=== PATIENT | male | born 1980 | race Caucasian/White ===

== ENCOUNTER 2016-09-19 21:41 | Emergency (ER) | payer SELFPAY ==
[~2016-09-19] VITALS: Ht 177.8 cm; Wt 95.3 kg
[~2016-09-19 21:41] MED LIST: 'PARAFON FORTE500 M1 PO; CLARITIN-D 24 H1 TAB PO; CLARITIN10 MG PO; DAYPRO600 M1 PO; HYDROCODONE BIT1 T11 PO; IBUPROFEN400 MG PO; KEFLEX500 M1 PO; KEFLEX500 MG PO; LOMOTIL 0.025 M1 TA1 PO; MOTRIN600 MG PO; Motrin,Rufen800 MG PO; NAPROSYN500 MG PO; NEXIUM40 MG PO; NORCO 10-325 T1 EACH PO; NORCO 325 MG-51 TAB PO; PARAFON FORTE500 MG PO; PEN-VEE K500 MG PO; PHENERGAN W/ DE30 ML PO; PHENERGAN25 M1 PO; PREDNICOT10 MG PO; PREVACID30 M2 PO; ULTRAM50 MG PO; ZITHROMAX Z PA250 MG PO; ZITHROMAX500 MG PO; ZOFRAN4 MG PO; Zofran4 MG PO
[2016-09-19 21:47] VITALS: BP 145/88
[2016-09-19] MEDS ORDERED: CORTISPORIN SUS10 ML OT (22:29)
== END 2016-09-19 23:47 | disposition home or self-care (01) ==
LOC: ED 21:41
DX: T16.2XXA Foreign body in left ear, initial encounter (principal); K21.9 Gastro-esophageal reflux disease without esophagitis; X58.XXXA Exposure to other specified factors, initial encounter; Y93.89 Activity, other specified; Y92.9 Unspecified place or not applicable; Y99.9 Unspecified external cause status

== ENCOUNTER 2016-09-24 10:45 | Emergency (ER) | payer SELFPAY ==
[~2016-09-24] VITALS: Ht 177.8 cm; Wt 95.3 kg
[~2016-09-24 10:45] MED LIST changes: +CORTISPORIN SUS10 ML OT
[2016-09-24 11:05] VITALS: BP 152/98
== END 2016-09-24 11:38 | disposition home or self-care (01) ==
LOC: ED 10:45
DX: H60.502 Unspecified acute noninfective otitis externa, left ear (principal); K21.9 Gastro-esophageal reflux disease without esophagitis

== ENCOUNTER 2016-09-25 13:03 | Inpatient (IN) | payer SELFPAY ==
[~2016-09-25] VITALS: Wt 95.3 kg
[2016-09-25 13:18] VITALS: BP 143/82
[2016-09-25 13:34] LABS: BASO % 0.2 % (0.0-1.0); EOS % 0.2 % (1.0-4.0); HEMATOCRIT 44.5 % (42.0-52.0); LYMPH # 2.1 10*3/uL (1.3-4.4); LYMPH % 22.8 % (27.0-41.0); MEAN CELL VOLUME 86.6 fl (80.0-94.0); MEAN CORPUSCULAR HGB 29.2 pg (27.0-31.0); MEAN CORPUSCULAR HGB CONC 33.7 g/dl (33.0-37.0); MEAN PLATELET VOLUME 9.8 fl (9.6-12.3); MONO # 0.6 10*3/uL (0.1-1.0); MONO % 6.6 % (3.0-9.0); NEUT # 6.3 10*3/uL (2.3-7.9); NEUT % 70.1 % (47.0-73.0); PLATELET COUNT AUTOMATED 255 10*3/uL (130-400); RED BLOOD COUNT 5.14 10*6/uL (4.50-5.90); RED CELL DISTRI WIDTH 12.2 % (0-14.5)
[2016-09-25 13:40] VITALS: BP 146/84
[2016-09-25 13:43] LABS: PROTHROMBIN TIME 10.3 SECONDS (9.0-12.4)
[2016-09-25 13:51] LABS: ALBUMIN 3.9 gm/dl (3.1-4.5); ALKALINE PHOSPHATASE 66 U/L (45-117); BILIRUBIN, TOTAL 0.3 mg/dl (0.2-1.0); BUN 19 mg/dl (7-24); CARBON DIOXIDE 25 mmol/L (21-32); CHLORIDE 107 mmol/L (98-107); EST GLOM FILT AFRICAN AMERICAN > 60 ml/min; GLUCOSE 82 mg/dL (65-99); SGOT/AST 21 IU/L (3-35); SGPT/ALT 32 U/L (12-78); SODIUM 138 mmol/L (136-145); TOTAL PROTEIN 7.6 gm/dL (6.4-8.2)
[2016-09-25 13:52] LABS: TROPONIN I < 0.015 ng/ml (<0.045)
[2016-09-25 14:53] VITALS: BP 124/73
[2016-09-25 16:00] VITALS: BP 128/85
[2016-09-25 20:00] VITALS: BP 128/80
[2016-09-26] VITALS: BP 142/82
[2016-09-26 05:13] LABS: BASO % 0.3 % (0.0-1.0); EOS # 0.2 10*3/uL (0.0-0.4); EOS % 1.9 % (1.0-4.0); HEMATOCRIT 43.6 % (42.0-52.0); HEMOGLOBIN 14.7 g/dl (14.0-18.0); LYMPH # 2.8 10*3/uL (1.3-4.4); LYMPH % 30.9 % (27.0-41.0); MEAN CORPUSCULAR HGB 29.3 pg (27.0-31.0); MEAN CORPUSCULAR HGB CONC 33.7 g/dl (33.0-37.0); MEAN PLATELET VOLUME 10.2 fl (9.6-12.3); MONO # 0.8 10*3/uL (0.1-1.0); MONO % 8.4 % (3.0-9.0); NEUT # 5.2 10*3/uL (2.3-7.9); NEUT % 58.3 % (47.0-73.0); PLATELET COUNT AUTOMATED 231 10*3/uL (130-400); RED BLOOD COUNT 5.01 10*6/uL (4.50-5.90); RED CELL DISTRI WIDTH 12.4 % (0-14.5); WHITE BLOOD COUNT 8.9 10*3/uL (4.8-10.8)
[2016-09-26 05:34] LABS: ALBUMIN 3.7 gm/dl (3.1-4.5); BILIRUBIN, TOTAL 0.5 mg/dl (0.2-1.0); BUN 18 mg/dl (7-24); CARBON DIOXIDE 26 mmol/L (21-32); CHLORIDE 105 mmol/L (98-107); CHOLESTEROL 191 mg/dL (<200); EST GLOM FILT AFRICAN AMERICAN > 60 ml/min; GLUCOSE 99 mg/dL (65-99); POTASSIUM 4.1 mmol/L (3.5-5.1); SGOT/AST 25 IU/L (3-35); SGPT/ALT 31 U/L (12-78); SODIUM 140 mmol/L (136-145); TOTAL PROTEIN 7.1 gm/dL (6.4-8.2); TRIGLYCERIDES 192 mg/dl (<150); VLDL CHOLESTEROL 38 mg/dL (6-40)
[2016-09-26 05:41] LABS: ALKALINE PHOSPHATASE 52 U/L (45-117); FREE T4 1.11 ng/dl (0.76-1.46); HDL CHOLESTEROL 48 mg/dl (40-60); LDL CHOLESTEROL 105 mg/dL (9-159)
[2016-09-26 07:04] LABS: VITAMIN D, 25-HYDROXY 22.2 ng/mL (30-100)
[2016-09-26 07:05] LABS: FOLIC ACID 15.27 ng/mL (>5.38)
[2016-09-26 07:07] LABS: HEMOGLOBIN A1c 5.5 % (4.8-5.6)
[2016-09-26 08:00] VITALS: BP 130/85
[2016-09-26] MEDS ORDERED: VITAMIN D31000 IU PO (11:00)
== END 2016-09-26 11:30 | disposition home or self-care (01) | DRG 206 ==
LOC: ED 13:03 → 4E 14:22 → EDHOLD 14:22 → 4E 14:55
PROVIDERS: Nurse Practitioner Family; Registered Nurse
DX: M94.0 Chondrocostal junction syndrome [Tietze] (principal); E78.2 Mixed hyperlipidemia; K21.9 Gastro-esophageal reflux disease without esophagitis

== ENCOUNTER 2017-01-13 16:02 | Emergency (ER) | payer SELFPAY ==
[~2017-01-13] VITALS: Ht 177.8 cm; Wt 95.3 kg
[~2017-01-13 16:02] MED LIST changes: +VITAMIN D31000 IU PO
[2017-01-13 16:33] VITALS: BP 116/86
[2017-01-14] MEDS ORDERED: ALBUTEROL2.5 MG/0.5 INH (12:04)
[2017-01-14] MEDS ORDERED: PREDNISONE20 M1 PO (12:04)
[2017-01-14] MEDS ORDERED: AMOXICILLIN500 M2 PO (12:04)
== END 2017-01-13 19:02 | disposition left against medical advice (07) ==
LOC: ED 16:02
DX: R05 Cough (principal); R09.89 Other specified symptoms and signs involving the circulatory and respiratory systems; R50.9 Fever, unspecified

== ENCOUNTER 2017-01-14 10:13 | Emergency (ER) | payer SELFPAY ==
[~2017-01-14] VITALS: Ht 177.8 cm; Wt 95.3 kg
[2017-01-14 10:45] VITALS: BP 120/60
[2017-01-14] MEDS ORDERED: AMOXICILLIN500 M2 PO (12:04)
[2017-01-14] MEDS ORDERED: ALBUTEROL2.5 MG/0.5 INH (12:04)
[2017-01-14] MEDS ORDERED: PREDNISONE20 M1 PO (12:04)
== END 2017-01-14 12:20 | disposition home or self-care (01) ==
LOC: ED 10:13
DX: J20.9 Acute bronchitis, unspecified (principal)

== ENCOUNTER 2017-05-22 04:40 | Emergency (ER) | payer SELFPAY ==
[~2017-05-22] VITALS: Ht 177.8 cm; Wt 95.3 kg
[2017-05-22 04:40] VITALS: BP 119/83
[~2017-05-22 04:40] MED LIST changes: +ALBUTEROL2.5 MG/0.5 INH; +AMOXICILLIN500 M2 PO; +PREDNISONE20 M1 PO
== END 2017-05-22 06:24 | disposition home or self-care (01) ==
LOC: ED 04:40
DX: J40 Bronchitis, not specified as acute or chronic (principal); K21.9 Gastro-esophageal reflux disease without esophagitis; E78.2 Mixed hyperlipidemia; Z79.899 Other long term (current) drug therapy

== ENCOUNTER 2018-02-18 05:40 | Emergency (ER) | payer SELFPAY ==
[~2018-02-18] VITALS: Ht 177.8 cm; Wt 97.5 kg
[2018-02-18 05:41] VITALS: BP 140/90
[2018-02-18] MEDS ORDERED: PREDNISONE20 M1 PO (06:44)
[2018-02-18] MEDS ORDERED: CEFDINIR300 MG PO (06:44)
== END 2018-02-18 06:49 | disposition home or self-care (01) ==
LOC: ED 05:40
DX: J20.9 Acute bronchitis, unspecified (principal); K21.9 Gastro-esophageal reflux disease without esophagitis; E78.2 Mixed hyperlipidemia

== ENCOUNTER 2018-11-18 06:24 | Emergency (ER) | payer SELFPAY ==
[~2018-11-18] VITALS: Ht 177.8 cm; Wt 95.3 kg
[~2018-11-18 06:24] MED LIST changes: +CEFDINIR300 MG PO
[2018-11-18 06:25] VITALS: BP 158/92
== END 2018-11-18 07:31 | disposition home or self-care (01) ==
LOC: ED 06:24
DX: J06.9 Acute upper respiratory infection, unspecified (principal); E66.9 Obesity, unspecified; F17.200 Nicotine dependence, unspecified, uncomplicated; Z79.2 Long term (current) use of antibiotics; Z79.899 Other long term (current) drug therapy

== ENCOUNTER 2018-12-07 07:03 | Emergency (ER) | payer SELFPAY ==
[~2018-12-07] VITALS: Ht 177.8 cm; Wt 95.3 kg
[2018-12-07 07:05] VITALS: BP 114/90
[2018-12-07 07:27] LABS: HEMATOCRIT 42.2 % (42.0-52.0); HEMOGLOBIN 13.7 g/dl (14.0-18.0); MEAN CELL VOLUME 88.5 fl (80.0-94.0); MEAN CORPUSCULAR HGB 28.7 pg (27.0-31.0); MEAN CORPUSCULAR HGB CONC 32.5 g/dl (33.0-37.0); MEAN PLATELET VOLUME 9.5 fl (9.6-12.3); PLATELET COUNT AUTOMATED 244 10*3/uL (130-400); RED BLOOD COUNT 4.77 10*6/uL (4.50-5.90); RED CELL DISTRI WIDTH 12.4 % (0-14.5); WHITE BLOOD COUNT 7.3 10*3/uL (4.8-10.8)
[2018-12-07 07:35] LABS: ALBUMIN 3.5 gm/dl (3.1-4.5); ALKALINE PHOSPHATASE 88 U/L (45-117); BUN 17 mg/dl (7-24); CHLORIDE 111 mmol/L (98-107); CREATININE 1.05 mg/dL (0.70-1.30); LIPASE 176 U/L (73-393); POTASSIUM 4.1 mmol/L (3.5-5.1); SGOT/AST 14 IU/L (3-35); SGPT/ALT 33 U/L (12-78); SODIUM 141 mmol/L (136-145); TOTAL PROTEIN 6.9 gm/dL (6.4-8.2)
[2018-12-07 07:40] LABS: BILIRUBIN NEGATIVE (NEGATIVE); BLOOD NEGATIVE (NEGATIVE); CLARITY SL CLOUDY (CLEAR); COLOR YELLOW (YELLOW); GLUCOSE NEGATIVE (NEGATIVE); KETONE NEGATIVE (NEGATIVE); LEUKO ESTERASE NEGATIVE (NEGATIVE); NITRITE NEGATIVE (NEGATIVE); UROBILINOGEN 0.2 E.U./dl (0.2-1.0)
[2018-12-07 07:44] LABS: TOTAL CELLS COUNTED 100 #CELLS
[2018-12-07 07:45] LABS: PLATELET SUFFICIENCY NORMAL (NORMAL)
[2018-12-07 07:50] LABS: EPITHELIAL CELLS 0-2
[2018-12-07] MEDS ORDERED: PRILOSEC20 M1 PO (08:03)
[2018-12-07] MEDS ORDERED: ZOFRAN4 MG PO (08:03)
== END 2018-12-07 08:07 | disposition home or self-care (01) ==
LOC: ED 07:03
PROVIDERS: Emergency Medicine
DX: R11.2 Nausea with vomiting, unspecified (principal); R10.9 Unspecified abdominal pain; K21.9 Gastro-esophageal reflux disease without esophagitis; E66.9 Obesity, unspecified; E78.2 Mixed hyperlipidemia; Z79.2 Long term (current) use of antibiotics; Z79.899 Other long term (current) drug therapy

== ENCOUNTER 2019-02-22 11:39 | Emergency (ER) | payer SELFPAY ==
[~2019-02-22] VITALS: Wt 90.7 kg
[~2019-02-22 11:39] MED LIST changes: +PRILOSEC20 M1 PO
[2019-02-22 11:52] VITALS: BP 131/89
[2019-02-22] MEDS ORDERED: CYCLOBENZAPRINE5 M3 PO (14:58)
[2019-02-22] MEDS ORDERED: Motrin,Rufen800 MG PO (14:58)
== END 2019-02-22 15:06 | disposition home or self-care (01) ==
LOC: ED 11:39
DX: S39.012A Strain of muscle, fascia and tendon of lower back, initial encounter (principal); W01.0XXA Fall on same level from slipping, tripping and stumbling without subsequent striking against object, initial encounter; Y93.89 Activity, other specified; Y92.89 Other specified places as the place of occurrence of the external cause; Y99.8 Other external cause status

== ENCOUNTER 2019-08-18 08:46 | Emergency (ER) | payer SELFPAY ==
[~2019-08-18] VITALS: Ht 175.2 cm; Wt 95.3 kg
[~2019-08-18 08:46] MED LIST changes: +CYCLOBENZAPRINE5 M3 PO
[2019-08-18 08:52] VITALS: BP 143/96
[2019-08-18] MEDS ORDERED: NORCO 10-325 T1 EACH PO (11:40)
[2019-08-18] MEDS ORDERED: MEDROL DOSEPAK4 MG PO (11:40)
== END 2019-08-18 11:45 | disposition home or self-care (01) ==
LOC: ED 08:46
DX: S39.012A Strain of muscle, fascia and tendon of lower back, initial encounter (principal); K21.9 Gastro-esophageal reflux disease without esophagitis; X58.XXXA Exposure to other specified factors, initial encounter; Y93.89 Activity, other specified; Y92.89 Other specified places as the place of occurrence of the external cause; Y99.8 Other external cause status

== ENCOUNTER 2020-05-16 13:15 | Emergency (ER) | payer SELFPAY ==
[~2020-05-16] VITALS: Ht 177.8 cm; Wt 99.8 kg
[~2020-05-16 13:15] MED LIST changes: +MEDROL DOSEPAK4 MG PO
[2020-05-16 13:24] VITALS: BP 139/87
[2020-05-16] MEDS ORDERED: ROBAXIN-750750 MG PO (14:32)
[2020-05-16] MEDS ORDERED: PREDNISONE20 M1 PO (14:32)
== END 2020-05-16 15:26 | disposition home or self-care (01) ==
LOC: ED 13:15
DX: M54.42 Lumbago with sciatica, left side (principal); K21.9 Gastro-esophageal reflux disease without esophagitis; Z79.899 Other long term (current) drug therapy

== ENCOUNTER 2020-06-21 11:47 | Emergency (ER) | payer SELFPAY ==
[~2020-06-21] VITALS: Wt 95.3 kg
[~2020-06-21 11:47] MED LIST changes: +ROBAXIN-750750 MG PO
[2020-06-21 11:52] VITALS: BP 121/92
[2020-06-21] MEDS ORDERED: PEPCID20 MG PO (13:34)
[2020-06-21] MEDS ORDERED: PROTONIX40 MG PO (13:34)
== END 2020-06-21 13:40 | disposition home or self-care (01) ==
LOC: ED 11:47
DX: K21.9 Gastro-esophageal reflux disease without esophagitis (principal); Z79.2 Long term (current) use of antibiotics; Z79.899 Other long term (current) drug therapy

== ENCOUNTER 2021-01-23 11:03 | Emergency (ER) | payer SELFPAY ==
[~2021-01-23] VITALS: Wt 97.5 kg
[~2021-01-23 11:03] MED LIST changes: +PEPCID20 MG PO; +PROTONIX40 MG PO
[2021-01-23 11:22] VITALS: BP 131/93
[2021-01-23] MEDS ORDERED: IBUPROFEN600 MG PO (14:02)
== END 2021-01-23 13:59 | disposition left against medical advice (07) ==
LOC: ED 11:03
DX: M77.8 Other enthesopathies, not elsewhere classified (principal)

== ENCOUNTER 2021-02-12 15:04 | Emergency (ER) | payer SELFPAY ==
[~2021-02-12] VITALS: Wt 95.3 kg
[~2021-02-12 15:04] MED LIST changes: +IBUPROFEN600 MG PO
[2021-02-12 15:08] VITALS: BP 121/88
== END 2021-02-12 17:46 | disposition home or self-care (01) ==
LOC: ED 15:04
DX: S20.219A Contusion of unspecified front wall of thorax, initial encounter (principal); S89.91XA Unspecified injury of right lower leg, initial encounter; W22.01XA Walked into wall, initial encounter; Y93.89 Activity, other specified; Y92.89 Other specified places as the place of occurrence of the external cause; Y99.8 Other external cause status

== ENCOUNTER 2021-02-28 13:58 | Emergency (ER) | payer SELFPAY ==
[~2021-02-28] VITALS: Ht 177.8 cm; Wt 95.3 kg
[2021-02-28 14:19] VITALS: BP 150/102
== END 2021-02-28 16:39 | disposition left against medical advice (07) ==
LOC: ED 13:58
DX: Z53.21 Procedure and treatment not carried out due to patient leaving prior to being seen by health care provider (principal)

== ENCOUNTER 2021-04-18 12:27 | Emergency (ER) | payer SELFPAY ==
[~2021-04-18] VITALS: Wt 90.7 kg
[2021-04-18 12:43] VITALS: BP 106/66
[2021-04-18] MEDS ORDERED: PEPCID20 MG PO (14:09)
== END 2021-04-18 14:25 | disposition home or self-care (01) ==
LOC: ED 12:27
DX: R10.13 Epigastric pain (principal); K21.9 Gastro-esophageal reflux disease without esophagitis

== ENCOUNTER 2021-05-24 11:06 | Emergency (ER) | payer SELFPAY ==
[~2021-05-24] VITALS: Ht 177.8 cm; Wt 99.8 kg
[2021-05-24 11:12] VITALS: BP 125/85
[2021-05-24 12:13] LABS: BASO # 0.1 10*3/uL (0.0-0.1); BASO % 0.7 % (0.0-1.0); EOS # 0.4 10*3/uL (0.0-0.4); EOS % 5.3 % (1.0-4.0); HEMATOCRIT 43.2 % (42.0-52.0); LYMPH # 2.3 10*3/uL (1.3-4.4); LYMPH % 31.1 % (27.0-41.0); MEAN CELL VOLUME 86.7 fl (80.0-94.0); MEAN CORPUSCULAR HGB 28.9 pg (27.0-31.0); MEAN CORPUSCULAR HGB CONC 33.3 g/dl (33.0-37.0); MEAN PLATELET VOLUME 8.8 fl (9.6-12.3); MONO # 0.6 10*3/uL (0.1-1.0); MONO % 7.9 % (3.0-9.0); NEUT % 54.6 % (47.0-73.0); PLATELET COUNT AUTOMATED 252 10*3/uL (130-400); RED BLOOD COUNT 4.98 10*6/uL (4.50-5.90); RED CELL DISTRI WIDTH 12.6 % (0-14.5); WHITE BLOOD COUNT 7.3 10*3/uL (4.8-10.8)
[2021-05-24 12:22] LABS: BILIRUBIN Negative (Negative); BLOOD Negative (Negative); CLARITY Clear (Clear); COLOR Yellow (Yellow); GLUCOSE Negative (Negative); KETONE Negative (Negative); LEUKO ESTERASE Negative (Negative); NITRITE Negative (Negative); PH 6.5 (4.5-8.0); SPECIFIC GRAVITY 1.025 (1.001-1.030)
[2021-05-24 12:32] LABS: ALKALINE PHOSPHATASE 72 U/L (45-117); BUN 12 mg/dl (7-24); CHLORIDE 110 mmol/L (98-107); CREATININE 0.97 mg/dL (0.70-1.30); LIPASE 71 U/L (73-393); POTASSIUM 4.1 mmol/L (3.5-5.1); SGOT/AST 14 IU/L (3-35); SGPT/ALT 23 U/L (12-78); SODIUM 142 mmol/L (136-145)
[2021-05-24 12:49] LABS: EPITHELIAL CELLS 0-2; MUCOUS 1+
== END 2021-05-24 17:45 | disposition home or self-care (01) ==
LOC: ED 11:06
PROVIDERS: Nurse Practitioner
DX: S39.011A Strain of muscle, fascia and tendon of abdomen, initial encounter (principal); K29.00 Acute gastritis without bleeding; Z90.89 Acquired absence of other organs; X58.XXXA Exposure to other specified factors, initial encounter; Y93.89 Activity, other specified; Y92.89 Other specified places as the place of occurrence of the external cause; Y99.8 Other external cause status

== ENCOUNTER 2022-10-17 10:54 | Emergency (ER) | payer SELFPAY ==
[~2022-10-17] VITALS: Ht 177.8 cm; Wt 99.8 kg
[2022-10-17 11:26] VITALS: BP 119/82
[2022-10-17] MEDS ORDERED: OFLOXACIN 10 ML10 M2 OU (11:36)
== END 2022-10-17 11:42 | disposition home or self-care (01) ==
LOC: ED 10:54
DX: H10.9 Unspecified conjunctivitis (principal); K21.9 Gastro-esophageal reflux disease without esophagitis; Z98.890 Other specified postprocedural states

== ENCOUNTER 2024-02-13 06:50 | Emergency (ER) | payer SELFPAY ==
[~2024-02-13] VITALS: Ht 177.8 cm; Wt 99.8 kg
[~2024-02-13 06:50] MED LIST changes: +OFLOXACIN 10 ML10 M2 OU
[2024-02-13 06:58] VITALS: BP 129/91
[2024-02-13] MEDS ORDERED: MORPHINE Sulfate 2 MG/ML SYR IV ONE (07:05)
[2024-02-13 07:10] LABS: BASO % 0.4 % (0.0-1.0); EOS # 0.2 10*3/uL (0.0-0.4); HEMATOCRIT 44.3 % (42.0-52.0); MEAN CELL VOLUME 87.7 fl (80.0-94.0); MEAN CORPUSCULAR HGB 28.3 pg (27.0-31.0); MEAN CORPUSCULAR HGB CONC 32.3 g/dl (33.0-37.0); MEAN PLATELET VOLUME 9.1 fl (9.6-12.3); MONO # 0.6 10*3/uL (0.1-1.0); MONO % 7.8 % (3.0-9.0); NEUT # 4.7 10*3/uL (2.3-7.9); NEUT % 62.9 % (47.0-73.0); PLATELET COUNT AUTOMATED 234 10*3/uL (130-400); RED BLOOD COUNT 5.05 10*6/uL (4.50-5.90); RED CELL DISTRI WIDTH 12.8 % (0-14.5); WHITE BLOOD COUNT 7.4 10*3/uL (4.8-10.8)
[2024-02-13 07:30] LABS: ALKALINE PHOSPHATASE 81 U/L (46-116); BUN 13 mg/dl (9-23); CHLORIDE 108 mmol/L (98-107); POTASSIUM 3.9 mmol/L (3.4-5.1); SGPT/ALT 10 U/L (5-49); TOTAL PROTEIN 7.2 gm/dL (6.0-8.0)
[2024-02-13] MEDS ORDERED: Dicyclomine Hydrochloride 20 MG/10 ML OSYR PO STA (08:12)
[2024-02-13] MEDS ORDERED: Lidocaine Hydrochloride 15 ML UDC PO STA (08:12)
[2024-02-13] MEDS ORDERED: MG-AL HYDROXIDE/SIMETICONE 30 ML UDC PO STA (08:12)
== END 2024-02-13 10:10 | disposition home or self-care (01) ==
LOC: ED 06:50
PROVIDERS: Internal Medicine
DX: K21.9 Gastro-esophageal reflux disease without esophagitis (principal); R07.89 Other chest pain; R06.02 Shortness of breath; Z98.890 Other specified postprocedural states

== ENCOUNTER 2024-05-11 19:53 | Emergency (ER) | payer SELFPAY ==
[~2024-05-11] VITALS: Ht 177.8 cm; Wt 99.8 kg
[2024-05-11 20:07] VITALS: BP 125/89
[2024-05-11 20:47] LABS: BASO % 0.3 % (0.0-1.0); EOS % 0.1 % (1.0-4.0); HEMATOCRIT 47.4 % (42.0-52.0); MEAN CELL VOLUME 87.5 fl (80.0-94.0); MEAN CORPUSCULAR HGB 27.9 pg (27.0-31.0); MEAN CORPUSCULAR HGB CONC 31.9 g/dl (33.0-37.0); MEAN PLATELET VOLUME 8.8 fl (9.6-12.3); MONO # 0.7 10*3/uL (0.1-1.0); MONO % 8.3 % (3.0-9.0); NEUT # 5.5 10*3/uL (2.3-7.9); PLATELET COUNT AUTOMATED 274 10*3/uL (130-400); RED BLOOD COUNT 5.42 10*6/uL (4.50-5.90); RED CELL DISTRI WIDTH 12.6 % (0-14.5); WHITE BLOOD COUNT 8.7 10*3/uL (4.8-10.8)
[2024-05-11 21:07] LABS: BUN 12 mg/dl (9-23); CHLORIDE 103 mmol/L (98-107); POTASSIUM 3.9 mmol/L (3.4-5.1)
[2024-05-11] MEDS ORDERED: Meclizine Hydrochloride 25 MG TAB PO ONE (22:05)
[2024-05-11] MEDS ORDERED: MECLIZINE HCL25 M2 PO (23:15)
== END 2024-05-11 23:27 | disposition home or self-care (01) ==
LOC: ED 19:53
PROVIDERS: Emergency Medicine
DX: B34.9 Viral infection, unspecified (principal); R42 Dizziness and giddiness; K21.9 Gastro-esophageal reflux disease without esophagitis; Z20.822 Contact with and (suspected) exposure to COVID-19

== ENCOUNTER 2024-05-25 06:16 | Emergency (ER) | payer SELFPAY ==
[~2024-05-25] VITALS: Ht 177.8 cm; Wt 99.8 kg
[~2024-05-25 06:16] MED LIST changes: +MECLIZINE HCL25 M2 PO
[2024-05-25 06:37] VITALS: BP 115/80
[2024-05-25] MEDS ORDERED: Tdap Vaccine 0.5 ML SYR (Adult Vaccine) IM ONE (07:00)
[2024-05-25 07:16] LABS: BASO % 0.5 % (0.0-1.0); EOS # 0.1 10*3/uL (0.0-0.4); EOS % 1.8 % (1.0-4.0); HEMATOCRIT 44.7 % (42.0-52.0); MEAN CORPUSCULAR HGB 28.3 pg (27.0-31.0); MEAN CORPUSCULAR HGB CONC 32.2 g/dl (33.0-37.0); MEAN PLATELET VOLUME 8.8 fl (9.6-12.3); MONO # 0.5 10*3/uL (0.1-1.0); MONO % 8.1 % (3.0-9.0); NEUT # 3.7 10*3/uL (2.3-7.9); NEUT % 60.8 % (47.0-73.0); PLATELET COUNT AUTOMATED 262 10*3/uL (130-400); RED BLOOD COUNT 5.08 10*6/uL (4.50-5.90); RED CELL DISTRI WIDTH 12.8 % (0-14.5); WHITE BLOOD COUNT 6.2 10*3/uL (4.8-10.8)
[2024-05-25 07:47] LABS: BUN 10 mg/dl (9-23); CHLORIDE 104 mmol/L (98-107); POTASSIUM 3.6 mmol/L (3.4-5.1)
[2024-05-25] MEDS ORDERED: SEPTDS PO (08:21)
== END 2024-05-25 09:00 | disposition home or self-care (01) ==
LOC: ED 06:16
PROVIDERS: Emergency Medicine
DX: S91.332A Puncture wound without foreign body, left foot, initial encounter (principal); K21.9 Gastro-esophageal reflux disease without esophagitis; W22.8XXA Striking against or struck by other objects, initial encounter; Y93.89 Activity, other specified; Y92.89 Other specified places as the place of occurrence of the external cause; Y99.8 Other external cause status

== ENCOUNTER 2024-07-26 20:30 | Emergency (ER) | payer SELFPAY ==
[~2024-07-26] VITALS: Ht 177.8 cm; Wt 95.3 kg
[~2024-07-26 20:30] MED LIST changes: +SEPTDS PO
[2024-07-26 20:56] VITALS: BP 121/68
[2024-07-26] MEDS ORDERED: Acetaminophen/Hydrocodone 5 MG/325 MG TABLET PO ONE (22:20)
[2024-07-26] MEDS ORDERED: NAPROSYN500 MG PO (23:38)
== END 2024-07-26 23:40 | disposition home or self-care (01) ==
LOC: ED 20:30
DX: K21.9 Gastro-esophageal reflux disease without esophagitis (principal); E78.2 Mixed hyperlipidemia; S90.32XA Contusion of left foot, initial encounter; S90.02XA Contusion of left ankle, initial encounter; V09.9XXA Pedestrian injured in unspecified transport accident, initial encounter; Y93.89 Activity, other specified; Y92.89 Other specified places as the place of occurrence of the external cause; Y99.8 Other external cause status

== ENCOUNTER 2024-11-09 17:10 | Emergency (ER) | payer SELFPAY ==
[~2024-11-09] VITALS: Ht 177.8 cm; Wt 95.3 kg
[2024-11-09 17:25] VITALS: BP 134/81
[2024-11-09] MEDS ORDERED: ALBUTEROL 8 GM INHALER INH ONE (17:55)
[2024-11-09] MEDS ORDERED: Amoxicillin/Clavulanate Pota 875 MG TAB PO ONE (19:45)
[2024-11-09] MEDS ORDERED: MEDROL DOSEPAK4 MG PO (20:08)
[2024-11-09] MEDS ORDERED: AMOX-CLAV 875-1 EACH PO (20:08)
== END 2024-11-09 20:10 | disposition home or self-care (01) ==
LOC: ED 17:10
DX: J98.4 Other disorders of lung (principal); J40 Bronchitis, not specified as acute or chronic; Z20.822 Contact with and (suspected) exposure to COVID-19; F17.290 Nicotine dependence, other tobacco product, uncomplicated